=== PATIENT | male | born 1960 | race Caucasian/White ===

== ENCOUNTER 2022-03-07 12:02 | Outpatient (CLI) | payer OTHER, SELFPAY ==
[2022-03-07 14:23] LABS: Chloride* 102 mmol/L (96-114); Potassium* 4.6 mmol/L (3.6-5.1); Sodium* 140 mmol/L (135-149)
[2022-03-07 14:26] LABS: Blood Urea Nitrogen* 21 mg/dL (7-30); Carbon Dioxide* 32 mmol/L (20-32); Cholesterol* 288 mg/dL (90-199); Creatinine* 0.9 mg/dL (0.5-1.5); Estimated Glomerular Filt Rate 98 ml/min
[2022-03-07 14:27] LABS: Calcium* 9.9 mg/dL (8.4-10.6); Glucose* 118 mg/dL (60-115); HDL Cholesterol* 65 mg/dL (>=40); LDL Cholesterol Calculated 195 mg/dL (<100); Triglycerides* 142 mg/dL (40-149)
[2022-03-07 14:57] LABS: PSA Screen* 1.95 ng/mL (0.10-4.00)
== END 2022-03-07 12:03 | disposition home or self-care (01) ==
PROVIDERS: PCP Family Medicine; Visit Provider Family Medicine
DX: I10 Essential (primary) hypertension (principal); E78.5 Hyperlipidemia, unspecified; Z12.5 Encounter for screening for malignant neoplasm of prostate
CPT/HCPCS: 80048; 80061; 84153

== ENCOUNTER 2022-11-17 14:02 | Outpatient (CLI) | payer OTHER, SELFPAY | END 2022-11-17 14:03 | disposition home or self-care (01) | PROVIDERS: Visit Provider Registered Nurse | DX: R07.9 Chest pain, unspecified (principal); E78.5 Hyperlipidemia, unspecified; I10 Essential (primary) hypertension | CPT/HCPCS: 80076; 84484; 85379 ==

== ENCOUNTER 2023-06-06 11:41 | Outpatient (CLI) | payer OTHER, SELFPAY ==
--- NOTE | 2023-06-06 14:00 | US_ITS ---
Patient: REAGAN GOLDMAN Facility:?[facility] Patient ID:?[id number] Site Patient ID:?[id number]. Site :?1960 Study:?US-Extremity REBECCA RT-06/06/2023 12:26:16 PM Ordering Physician:?SUSAN CHAPARRO Final Report: INDICATION: RT CALF PAIN, SWELLING/EDEMA UNILATERAL COMPARISON: None. TECHNIQUE: A compression venous ultrasound exam was performed of the right lower extremity using galan-scale imaging, color Doppler and spectral Doppler analysis. FINDINGS: Sonographic imaging of the right lower extremity demonstrates normal compressibility and color Doppler venous blood flow within the common femoral vein, deep femoral vein, and the proximal greater saphenous vein. Within the thigh, the femoral vein is patent and compressible. At a lower level, the popliteal and posterior tibial veins also show normal compressibility and color Doppler venous blood flow. Limited imaging of the contralateral groin demonstrates a normal spectral waveform and color Doppler venous blood flow within the left common femoral vein. Superficial clot is present within the right mid calf extending over a length of 6.3 cm. IMPRESSION: No evidence of deep vein thrombosis within the right lower extremity. Superficial thrombus within the right mid calf extending over a length of 6.3 cm. Dictated by Miguel Angel Burns MD @ 06/06/2023 12:56:17 PM Signed by:?Miguel Angel Burns MD @06/06/2023 12:56:17 PM (Electronic Signature)
== END 2023-06-06 11:42 | disposition home or self-care (01) ==
PROVIDERS: PCP Family Medicine; Visit Provider Orthopaedic Surgery
DX: M79.604 Pain in right leg (principal); I82.811 Embolism and thrombosis of superficial veins of right lower extremity; R22.41 Localized swelling, mass and lump, right lower limb
CPT/HCPCS: 93971

== ENCOUNTER 2023-06-14 12:57 | Outpatient (CLI) | payer OTHER, SELFPAY ==
--- NOTE | 2023-06-14 13:00 | MR_ITS ---
Patient: REAGAN GOLDMAN Facility:?[facility] Patient ID:?[id number] Site Patient ID:?[id number]. Site :?1960 Study:?MRI-Shoulder Right w/o-06/14/2023 1:47:30 PM Ordering Physician:Omid Alanis Final Report: INDICATION: Shoulder pain. COMPARISON: None provided. TECHNIQUE: Axial T1 and PD fat-sat, coronal PD, T2 and PD fat sat and sagittal PD and T2 right shoulder. Some motion degrades provided sequences. FINDINGS: Rotator cuff: Degenerative appearing full-thickness tear of the anterior distal supraspinatus. Anterior-posterior distance 18 mm. Retraction roughly 10 mm although the proximal and posterior tendon is moderate to significantly thinned due to articular surface high-grade partial tearing. Tear anteriorly enters the rotator interval. Mild patchy heterogeneous intermediate signal in the infraspinatus consistent with mild tendinosis. Intact teres minor. Prominent disorganized delaminating tearing and tendinosis of the inserting subscapularis. Long head biceps appears to be medially dislocated and courses through the torn and degenerated subscapularis. No rotator cuff muscle atrophy or edema. - Acromioclavicular joint and coracoacromial arch: Curved type 2 acromial undersurface with slight lateral downsloping. Acromiohumeral distance is 7.5 mm. Thin line of fluid in the subacromial/subdeltoid bursa. Shallow subacromial spurring at the insertion of normal thickness coracoacromial ligament. Mild degenerative arthrosis AC joint with small effusion and capsular edematous hypertrophy. Upper normal width of the joint. No significant osteophyte. Intact coracoclavicular ligaments and normal coracoclavicular distance. Subcoracoid interval is patent. - Biceps labral complex: Somewhat small superior labrum may be marginal degenerative tearing. Anterior, inferior and posterior labrum look normal. Intact anchor. Medially subluxed biceps is indistinct thin and elongated with prominent intermediate signal at the margins as it extends through the subscapularis. High-grade to complete tearing as it extends over the lesser tuberosity and back into the bicipital groove which is filled with synovitis and a small amount of fluid. Some return to normal low signal tendon at the inferior field of view. - Glenohumeral joint: Anatomic alignment. Grade 2 cartilage thinning in the glenoid superiorly. No secondary degenerative or inflammatory finding. Physiologic fluid. - Bones and soft tissues: Deltoid bulk and signal is normal. Neutral glenoid version. No fracture. No bone lesion. Visualized axilla is unremarkable. IMPRESSION: 1. Full-thickness degenerative appearing tear in the anterior distal supraspinatus to the footplate and through the rotator interval. Delaminating tear and prominent tendinosis of the subscapularis. Disruption of the biceps pauline. Medial dislocation of biceps. High-grade to complete tear through the subscapularis. Some fluid and synovitis in the tendon sheath. 2. Mild degenerative arthrosis AC joint. 3. Subacromial spurring. Dictated by Jerald Florentino MD @ 06/14/2023 7:16:19 PM Signed by:?Jerald Florentino MD @06/14/2023 7:16:19 PM (Electronic Signature)
== END 2023-06-14 12:58 | disposition home or self-care (01) ==
LOC: MRI 13:02
PROVIDERS: PCP Family Medicine; Visit Provider Orthopaedic Surgery
DX: M25.511 Pain in right shoulder (principal); M75.101 Unspecified rotator cuff tear or rupture of right shoulder, not specified as traumatic; M19.011 Primary osteoarthritis, right shoulder
CPT/HCPCS: 73221

== ENCOUNTER 2024-05-09 10:13 | Outpatient (CLI) | payer OTHER, SELFPAY | END 2024-05-09 10:14 | disposition home or self-care (01) | PROVIDERS: PCP Family Medicine; Visit Provider Family Medicine | DX: I10 Essential (primary) hypertension (principal); E78.5 Hyperlipidemia, unspecified; N52.9 Male erectile dysfunction, unspecified; Z12.5 Encounter for screening for malignant neoplasm of prostate | CPT/HCPCS: 80048; 80061; 84403; G0103 ==

== ENCOUNTER 2024-07-16 07:53 | Outpatient (CLI) | payer OTHER, SELFPAY | END 2024-07-16 07:54 | disposition home or self-care (01) | LOC: RAD 07:54 | PROVIDERS: PCP Registered Nurse; Visit Provider Registered Nurse | DX: R10.13 Epigastric pain (principal); I34.0 Nonrheumatic mitral (valve) insufficiency; R06.00 Dyspnea, unspecified | CPT/HCPCS: 93306 ==

== ENCOUNTER 2024-07-16 13:38 | Outpatient (CLI) | payer OTHER, SELFPAY | END 2024-07-16 13:39 | disposition home or self-care (01) | PROVIDERS: PCP Registered Nurse; Visit Provider Registered Nurse | DX: R07.9 Chest pain, unspecified (principal); R06.02 Shortness of breath; E78.2 Mixed hyperlipidemia | CPT/HCPCS: 83880; 84484; 85379 ==

== ENCOUNTER 2024-07-16 15:23 | Emergency (ER) | payer OTHER, SELFPAY ==
[2024-07-16] VITALS (56 sets, daily range): BP systolic 131–199; BP diastolic 85–128; PULSE 58–90; RESP 0–32; TEMP 36.4; O2SAT 92–98; BMI 31.6
--- OUTSIDE RECORDS SUMMARY | 2024-07-16 15:26 | XMS_ITS | Clinical Summary ---
Author Organization [facility] Address [address] [place] [address] Care Team Providers Care Parts Sales Representative Name Role Phone Pcp, No Primary Care Provider Unavailabl e Allergies No known active allergies Medications metoprolol succinate (TOPROL XL) 50 mg sustained-releas e tabletIndication s:HTN (hypertension) Take 1 tablet by mouth once daily. 90 tablet 3 05/19/2020 Active rosuvastatin (CRESTOR) 20 mg tabletIndication s:HTN (hypertension) Take 1 tablet by mouth at bedtime. 90 tablet. 3 05/19/2020 Active Active Problems Problem Noted Date Diagnosed Date Erectile dysfunction 10/12/2015 S/P total knee arthroplasty 05/04/2014 Tobacco use disorder 10/07/2008 ANXIETY DISORDER 04/06/2006 HYPERLIPIDEMIA 04/06/2006 Resolved Problems Problem Noted Date Diagnosed Date Resolved Date HTN (hypertension) 06/01/2009 3 Encounters Date Type Department Care Team Description 07/16/2024 8:00 AM CDT Ancillary Procedure [facility] [address] [place] [address] Arrived from Last 3 Months Immunizations Immunization Administration Dates Next Due AMB Influenza, IIV4 PF (=>6 mos Flulaval,Fluzone Fluarix)(Flu Clinic Only) 01/10/2017 Td (Age >=7 Years) 04/09/1996 Tdap 07/12/2010 Family History Medical History Relation Name Comments Alcohol/Drug Father ETOH Cancer Father lung, throat Heart Disease Maternal Grandfather Diabetes Maternal Grandmother Heart Disease Maternal Grandmother Psychiatric illness Mother depressi on-celexa Heart Disease Paternal Grandmother Psychiatric illness Sister depressi on-wellbutrin Relation Name Status Comments Father (Age 71) Maternal Grandfather Maternal Grandmother Mother Alive Paternal Grandmother Sister Social History Tobacco Use Types Packs/Day Years Used Date Smoking Tobacco: Former Smokeless Tobacco: Current Chew Last attempted to quit: 03/09/2013 Tobacco Cessation:Ready to Q uit: No; Counseling Given: Yes Comments:chews Alcohol Use Standard Drinks/Week Comments Yes 0 (1 standard drink = 0.6 oz pur e alcohol) occasional PHQ-2 Answer Date Recorded PHQ-2 TOTAL SCORE 0 04/14/2020 Social Connections Answer Date Recorded Frequency of Communication with Friends and Fami ly Not on file 04/09/2021 Financial Resource Strain Answer Date R ecorded Difficulty of Paying Living Expenses Not on file 04/09/2021 Difficulty of Paying Living Expenses Not on file 04/09/2021 Sex and Gender Information Value Date Recorded Sex Assigned at Not on file Legal Sex Male 5:40 AM FACE PAINTER Gender Identity Not on file Sexual Orientation Not on file Occupation Industry Job Start Date Job End Date [employer] Not on file Not on file Not on file Not on file Not on file Not on file Not on file unemployed Not on file Not on file Not on file Obstetrics History Last Filed Vital Signs Vital Sign Reading Time Taken Comments Blood Pressure 144/80 05/19/2020 2:31 PM FACE PAINTER Pulse 88 05/19/2020 2:30 PM FACE PAINTER Temperature 36.8 C (98.3 F) 03/30/2016 12:24 PM FACE PAINTER Respiratory Rate 15 03/26/2015 11:28 AM FACE PAINTER Oxygen Saturation 96% 03/30/2016 12:24 PM FACE PAINTER Inhaled Oxygen Concentration - - Weight 102.5 kg (226 lb) 05/19/2020 2:30 PM FACE PAINTER Height 180.3 cm (5' 11) 05/19/2020 2:30 PM FACE PAINTER Body Mass Index 31.52 05/19/2020 2:30 PM FACE PAINTER Plan of Treatment Upcoming Encounters Date Type Department Care Team (Late st Contact Info) Description 07/24/2024 8:30 AM CDT Office Visit [facility] [address] [place] [address] Sha French MD [address] [address] [place] [address] Health Maintenance Due Date Last Done Comments HIV for age 15-65 1976 Pneumococcal series for age 50+ (1 of 1 - PCV) 08/22/2011 Zoster (shingles) series for age 50+ (1 of 2) 08/22/2011 Fecal testing non-DNA (FIT,FOBT,iFOBT) for age 45-75 01/02/2018 01/02/2017 Tetanus booster 07/12/2020 07/12/2010, 04/09/1996 Depression screening for age 12+ 04/14/2021 04/14/19, 12/21/2016 BMI (ht and wt on same day) for age 18+ 05/19/2021 05/19/2020, 04/14/2020, 12/21/2016 COVID-19 vaccine series ( - 2023- season) 2023 Influenza Vaccine (Season Ended) 2024 01/11/20 17 Lipids for age 45-75 05/10/2025 05/10/2020, 12/21/2016, 03/26/2015, Additional history exists RSV vaccine for adults or (1 - 1-dose 75+ series) 2036 Tdap Completed 07/12/2010 Hepatitis C screening for ag e 18-79 Completed 05/10/2020 Medical Devices Implanted Type Area Visualization Developer Device Identifier Shelf Expiration Date Model / Serial / Lot [id number] - [id number] Implanted:Qty: 1 on 05/04/2014 by Morris Alanis MD at [facility] Total Joint Right: Knee DEPUY 06/06/2017 7 / / [id number] Description:Attune Tibial In sert Fixed Bearing Posterior Stabilized Size 7 7mm AOX Cement Simplex W/ Tobramycin - [id number] Implanted:Qty: 2 on 05/04/2014 by Morris Alanis MD at [facility] Right: Knee D-SOHAM 06/06/2015 [id number] / / [id number] Description:Antibiotic simpl ex cement [id number] - [id number] Implanted:Qty: 1 on 05/04/2014 by Morris Alanis MD at [facility] Right: Knee DEPUY 10/07/2023 7 [id number] Description:Attune Tibial ba se fixed bearing size 7 cemented [id number] - [id number] Implanted:Qty: 1 on 05/04/2014 by Morris Alanis MD at [facility] Right: Knee DEPUY 08/06/2018 8 / / [id number] Description:Attune patella m edialized dome [id number] - [id number] Implanted:Qty: 1 on 05/04/2014 by Morris Alanis MD at [facility] Right: Knee DEPUY 06/06/2023 [id number] Description:Attune femoral p osterior stabilized Procedures Procedure Name Priority Date/Time Associated Diagnosis Comments ECHO TTE COMPLETE WO CONTRAST Routine 07/16/2024 8:29 AM CDT Epigastric pain ANTI HCV Routine 05/10/2020 10:29 AM FACE PAINTER Encounter for HCV screening test for high risk patient LIPID PANEL W REFLEX MEASURED LDL Routine 05/10/2020 10:29 AM FACE PAINTER HTN (hypertension) Well adult exam OCCULT BLOOD IFOBT STOOL Routine 01/02/2017 1:00 PM CDT Screening for colon cancer from Last 3 Months or Most Recently Relevant to Health Maintenance Results * ECHO TTE COMPLETE WO CONTRAST (07/16/2024 8:29 AM CDT) AORTIC VALVE MEAN PG 3 mmHg EJECTION FRACTION 52 % LVEDD 5.6 cm EJECTION FRACTION 50 - 55% Anatomical Region Laterality Modality Ultrasound 07/16/2024 8:05 AM CDT Narrative 07/16/2024 8:39 AM CDT ECHOCARDIOGRAM MOISES LUNA : 1960 63 years Study Date: 07/16/2024 8:05:51 AM Gender: M BP: 167/94 mmHg Height: 173.00 cm BSA: 2.16 m Weight: 103.00 kg Tech: [facility] Referring MD: HARRIET PARKINSON Site: [facility] Reading Location: Mobile-OP Patient Location: Outpatient. Procedure: 2D, Color Doppler and Spectral Doppler. Indication for study: Epigastric Pain Cardiac Rhythm: Regular.Study quality: Good. Final Impressions: 1. Normal LV size, normal wall thickness, estimated EF of 50 - 55%. 2. The mitral valve is normal, mild regurgitation. 3. No pericardial effusion. Chamber Sizes and Function Normal left ventricular size, normal wall thickness, low normal global systolic function with an estimated EF of 50 - 55%. No resting regional wall motion abnormality visualized. Left atrial size is normal. Left atrial pressure is normal. Right ventricular cavity size is normal, global systolic RV function is normal. RV wall thickness is normal. The right atrium is normal. Right atrial volume index is 14 ml/m . Right atrial area is 12 cm . The pulmonary artery is of normal size and origin. The sinus of Valsalva is normal sized. The ascending aorta is normal sized. Valves, RV Pressures and Diastolic Function The aortic valve is normal in structure and trileaflet, no stenosis and no regurgitation. The mitral valve is normal in structure, mild mitral regurgitation. Normal diastolic function. The tricuspid valve is normal in structure and regurgitation is not evident tricuspid regurgitation. The pulmonic valve is normal. No pulmonary regurgitation. Masses, Effusion, Shunts There is no pericardial effusion. The inferior vena cava is normal sized, respiratory size variation greater than 50%. No left to right shunting was detected by limited color flow Doppler interrogation of the interatrial septum. MEASUREMENTS AND CALCULATIONS 2-D Measurements and LV Function: LVID (d) 5.6 cm LV FS% (2D) 42 % LVID (s) 3.2 cm LVOT diameter 2.6 cm IVS (d) 1.1 cm HR 75 bpm LVPW (d) 1.1 cm LA Vol index 27 ml/m2 Ao Sinus 3.7 cm RA Vol index 14 ml/m2 Ao Sinus ULN 4.2 cm * RA area 12 cm Asc Ao 3.5 cm RV Basal Diam 3.2 cm Asc Ao ULN 4.2 cm * LA 4.4 cm * Input BSA outside of range, reported values correspond to BSA = 2.1 Diastology: Mitral Tissue Doppler Pulmonary veins E Peak 0.6 m/s e', Septum 0.05 m/s Pulm s 41.1 cm/s A Peak 0.7 m/s e', Lateral 0.11 m/s Pulm d 50.3 cm/s E/A 0.8 E/e' Average 7.45 Pulm s/d ratio 0.82 DT 138 msec Aortic Valve: Vmax 1.1 m/s AFTAB (V) 3.56 cm VTI 0.23 m AFTAB (I) 3.00 cm LVOT V max 0.7 m/s Max PG 5 mmHg LVOT VTI 0.14 m Mean PG 3 mmHg SV 69 ml Dim Index 0.59 SV index 32 ml/m CO 5.2 l/min CI 2.4 l/min/m Mitral Valve: MVA 5.5 cm MV P 1/2 40 msec Tricuspid Valve and estimated PA pressures: TAPSE 2.1 cm Pulmonic Valve: PV AT 121 msec . This study was interpreted by an [facility] accredited facility. CC: [facility] ([facility]) [facility]. Final Procedure Note Manuel Back MD - 07/16/2024 ECHOCARDIOGRAM MOISES LUNA : 1960 63 years Study Date: 07/16/2024 8:05:51 AM Gender: M BP: 167/94 mmHg Height: 173.00 cm BSA: 2.16 m Weight: 103.00 kg Tech: [facility] Referring MD: HARRIET PARKINSON Site: [facility] Reading Location: Mobile-OP Patient Location: Outpatient. Procedure: 2D, Color Doppler and Spectral Doppler. Indication for study: Epigastric Pain Cardiac Rhythm: Regular.Study quality: Good. Final Impressions: 1. Normal LV size, normal wall thickness, estimated EF of 50 - 55%. 2. The mitral valve is normal, mild regurgitation. 3. No pericardial effusion. Chamber Sizes and Function Normal left ventricular size, normal wall thickness, low normal globalsystolic function with an estimated EF of 50 - 55%. No resting regionalwall motion abnormality visualized. Left atrial size is normal. Leftatrial pressure is normal. Right ventricular cavity size is normal, globalsystolic RV function is normal. RV wall thickness is normal. The rightatrium is normal. Right atrial volume index is 14 ml/m . Right atrialarea is 12 cm . The pulmonary artery is of normal size and origin. Thesinus of Valsalva is normal sized. The ascending aorta is normal sized. Valves, RV Pressures and Diastolic Function The aortic valve is normal in structure and trileaflet, no stenosis and noregurgitation. The mitral valve is normal in structure, mild mitralregurgitation. Normal diastolic function. The tricuspid valve is normal instructure and regurgitation is not evident tricuspid regurgitation. Thepulmonic valve is normal. No pulmonary regurgitation. Masses, Effusion, Shunts There is no pericardial effusion. The inferior vena cava is normal sized,respiratory size variation greater than 50%. No left to right shunting wasdetected by limited color flow Doppler interrogation of the interatrialseptum. MEASUREMENTS AND CALCULATIONS 2-D Measurements and LV Function: LVID (d) 5.6 cm LV FS% (2D) 42% LVID (s) 3.2 cm LVOT diameter2.6 cm IVS (d) 1.1 cm HR 75bpm LVPW (d) 1.1 cm LA Vol index 27ml/m2 Ao Sinus 3.7 cm RA Vol index 14ml/m2 Ao Sinus ULN 4.2 cm * RA area 12cm Asc Ao 3.5 cm RV Basal Diam3.2 cm Asc Ao ULN 4.2 cm * LA 4.4 cm * Input BSA outside of range, reported values correspond to BSA = 2.1 Diastology: Mitral Tissue Doppler Pulmonary veins E Peak 0.6 m/s e', Septum 0.05 m/s Pulm s 41.1 cm/s A Peak 0.7 m/s e', Lateral 0.11 m/s Pulm d 50.3 cm/s E/A 0.8 E/e' Average 7.45 Pulm s/d ratio 0.82 DT 138 msec Aortic Valve: Vmax 1.1 m/s AFTAB (V) 3.56 cm VTI 0.23 m AFTAB (I) 3.00 cm LVOT V max 0.7 m/s Max PG 5 mmHg LVOT VTI 0.14 m Mean PG 3 mmHg SV 69 ml Dim Index 0.59 SV index 32 ml/m CO 5.2 l/min CI 2.4 l/min/m Mitral Valve: MVA 5.5 cm MV P 1/2 40 msec Tricuspid Valve and estimated PA pressures: TAPSE 2.1 cm Pulmonic Valve: PV AT 121 msec . This study was interpreted by an [facility] accredited facility. CC: [facility] (med records) [facility]. Final us Harriet Parkinson [employer] ECHO ORD F inal Result * (ABNORMAL) LIPID PANEL W REFLEX MEASURED LDL (05/10/2020 10:29 AM FACE PAINTER) CHOLESTEROL,TOTAL 258(H) 100 - 199 mg/dL 05/10/2020 11:13 AM FACE PAINTER [facility] TRIGLYCERIDES 200(H) <150 mg/dL 05/10/2020 11:13 AM FACE PAINTER [facility] HDL CHOLESTEROL 47 >40 mg/dL 11:13 AM FACE PAINTER [facility] NON-HDL CHOLESTEROL 211(H) <145 mg/dl 05/10/2020 11:13 AM FACE PAINTER [facility] CHOL/HDL RATIO 5.49(H) <4.50 05/10/2020 11:13 AM FACE PAINTER [facility] LDL CHOLESTEROL 171(H) <=130 mg/dL 05/10/2020 11:13 AM FACE PAINTER [facility] PROVIDER ORDERED STATUS RANDOM 05/10/2020 11:13 AM FACE PAINTER [facility] Blood BLOOD SPECIMEN / Unknown Venipuncture / Unknown 05/10/2020 10:29 AM FACE PAINTER 05/10/2020 10:32 AM FACE PAINTER us Jeb Marquis MD CHEMISTRY Final R esult [address] [address] * ANTI HCV (05/10/2020 10:29 AM FACE PAINTER) HEPATITIS C ANTIBODY Non-React jhony Non-React jhony 05/10/2020 6:10 PM FACE PAINTER [facility] Comment:Antibodies to HCV no t detected; does not exclude the possibility of exposure to HCV. Blood BLOOD SPECIMEN / Unknown Venipuncture / Unknown 05/10/2020 10:29 AM FACE PAINTER 05/10/2020 10:32 AM FACE PAINTER Jeb Marquis MD SEND OUTS Final R esult [facility] [address] [place] [address], * OCCULT BLOOD IFOBT STOOL (01/02/2017 1:00 PM CDT) STOOL BLOOD ,IFOBT Negative Negative 01/02/2017 4:29 PM CDT [facility] Stool STOOL SPECIMEN / Unknown Non-Blood / Unknown 01/02/2017 1:00 PM CDT 01/02/2017 4:00 PM CDT Fabien Gamez MD LABORATORY Final Result [facility] [address] [place] [address] from Last 3 Months or Most Recently Relevant to Health Maintenance Insurance [facility] [employer] CHOICE [facility] [id number] [facility],[place] [address] Advance Directives * Full Code (Latest Code Status on File) Date Activated Date Inactivated Comments 05/04/2014 12:30 PM 05/07/2014 4:53 PM * Full Code Date Activated Date Inactivated Comments 05/04/2014 7:25 AM 05/04/2014 12:30 PM Care Teams Parts Sales Representative Relationship Specialty Start Date End Date Pcp, No . PCP - General 07/04/23
[2024-07-16 15:45] LABS: Basophils Absolute Auto 0.03 K/uL (0.00-0.30); Basophils Percent Auto 0.5 % (0.0-3.0); Eosinophils Absolute Auto 0.09 K/uL (0.00-0.50); Eosinophils Percent Auto 1.4 % (0.0-7.0); Hematocrit 44.1 % (37.0-53.0); Lymphocytes Absolute Auto 1.44 K/uL (0.90-2.90); Lymphocytes Percent Auto 22.1 % (20-44); Mean Corpuscular HGB Conc 34 gm/dL (32-36); Mean Corpuscular Hemoglobin 30 pg (26-34); Mean Corpuscular Volume 89 fL (80-100); Monocytes Percent Auto 9.1 % (0.0-11.0); Neutrophils Absolute Auto 4.36 K/uL (1.7-7.0); Neutrophils Percent Auto 66.9 % (42.0-72.0); Platelet Count* 206 K/uL (140-440); RDW Coefficient of Variation % 12.3 % (11.5-15.5); Red Blood Count 4.98 m/uL (4.30-5.90); White Blood Count* 6.51 K/uL (4.50-11.00)
[2024-07-16 15:50] LABS: Slide Review Reflex No
[2024-07-16 15:59] LABS: Chloride* 99 mmol/L (96-114); Potassium* 3.9 mmol/L (3.6-5.1); Sodium* 136 mmol/L (135-149)
[2024-07-16 16:01] LABS: Troponin, Point-of-Care* 2.47 ng/ml (0.01-0.04)
[2024-07-16 16:02] LABS: Anion Gap 10 mEq/L (7-15); Blood Urea Nitrogen* 17 mg/dL (7-30); Calcium* 9.4 mg/dL (8.4-10.6); Carbon Dioxide* 27 mmol/L (20-32); Creatinine* 0.8 mg/dL (0.5-1.5); Est. Creatinine Clearance* 79.08; Estimated Glomerular Filt Rate 100 ml/min; Glucose* 137 mg/dL (60-115)
--- NOTE | 2024-07-16 16:04 | ED.CHESTPAIN ---
HPI - Chest Pain General Date Seen: 07/16/24 Chief Complaint: Chest Pain Stated Complaint: heart issue Time Seen by Provider: 07/16/24 15:25 Source: patient Mode of arrival: ambulatory Limitations: no limitations History of Present Illness HPI narrative: Patient is a 63-year-old male presenting to the emergency department for chest pain and shortness of breath. He states for the past month he will get shortness of breath with any exertion. He states this is abnormal for him as not happened before. Has also states he has had 2 episodes of chest pressure. States the 1st time 2 weeks ago it occurred randomly and went away after he belched. It occurred again 5 days ago and lasted for about 2 days. States of this constant chest pressure that started mainly would not go way. Nothing seems to make it better or worse. Has never had pain like this before. Has been previously diagnosed with GERD initially thought it was that. Has uncontrolled hypertension and hyperlipidemia. Was at clinic today getting an echocardiogram when he decided to talk to his primary care provider about it again. Lab work was done there and chest x-ray showing no abnormalities. She some last week for the same symptoms and EKG was normal at that time along with his lab work. This time a point of care troponin came back elevated at 2.13. Due that his primary care provider called and told him to come to the emergency department. They also called here to the emergency department to inform us he is coming. Patient denies headache, lightheadedness, dizziness, diarrhea, constipation. Does state when he have the chest pressure it feels like it would go up into his neck. Related Data Home Medications ?Medication ?Instructions ?Recorded ?Confirmed coenzyme Q10-red yeast rice 25 cap PO 07/10/24 07/16/24 mg-600 mg capsule Previous Rx's ?Medication ?Instructions ?Recorded alprazolam 0.5 mg tablet (Xanax) 0.5 mg PO BID PRN anxiety #20 tabs 01/25/23 fluoxetine 20 mg capsule (Prozac) 20 mg PO QDAY #90 caps 05/09/24 omeprazole 20 mg capsule,delayed 20 mg PO QDAY PRN gerd #90 caps 05/09/24 release tamsulosin 0.4 mg capsule (Flomax) 0.4 mg PO QHS #90 caps 05/09/24 Allergies Allergy/AdvReac Type Severity Reaction Status Date / Time MOIRA Inhibitors AdvReac Intermediate Cough Verified 07/16/24 15:29 Review of Systems Status of ROS Reports: 10 or more systems reviewed and unremarkable except as noted in History and below PFSH PFSH Medical History Mixed hyperlipidemia ?E78.2 - Mixed hyperlipidemia (ICD-10) Primary hypertension ?I10 - Essential (primary) hypertension (ICD-10) GERD (gastroesophageal reflux disease) ?K21.9 - Gastro-esophageal reflux disease without esophagitis (ICD-10) Generalized anxiety disorder ?F41.1 - Generalized anxiety disorder (ICD-10) Major depression, recurrent ?F33.9 - Major depressive disorder, recurrent, unspecified (ICD-10) Erectile dysfunction ?N52.9 - Male erectile dysfunction, unspecified (ICD-10) Cholesteatoma ?H71.90 - Unspecified cholesteatoma, unspecified ear (ICD-10) BPH (benign prostatic hyperplasia) ?N40.0 - Benign prostatic hyperplasia without lower urinary tract symptoms (ICD-10) Surgical History Hx of repair of rotator cuff ?Z98.890 - Other specified postprocedural states (ICD-10) History of inguinal hernia repair (01/2005) ?Z98.890 - Other specified postprocedural states (ICD-10) ?Z87.19 - Personal history of other diseases of the digestive system (ICD-10) S/P total knee arthroplasty ?Z96.659 - Presence of unspecified artificial knee joint (ICD-10) S/P myringotomy with insertion of tube ?Z96.22 - Myringotomy tube(s) status (ICD-10) Hx of tonsillectomy ?Z90.89 - Acquired absence of other organs (ICD-10) History of ear surgery ?Z98.890 - Other specified postprocedural states (ICD-10) Family History Mother Diabetes Maternal Grandmother Diabetes Other Heart disease Stroke Social History Narrative: Single, two kids, [employer] truck driver, social ETOH, chews tobacco What is your current living situation?: I have a place to live at present, but am concerned about future Problems where you live: pests, such as bugs, ants, or mice and no known problems In the past 12 months, utilities in danger of being shut off: no In past 12 months, lack of transportation kept you from medical appts, meetings, work, or getting things needed for daily living: no In the past 12 mos, have been you worried that your food would run out before you had money to buy more?: never true In the past 12 mos, the food you bought just didn't last and you didn't have money to buy more?: never true Smoking Status: Former smoker How often does anyone, including family, friends and others, physically hurt you: never How often does anyone, including family, friends and others, insult or talk down to you: never How often does anyone, including family, friends and others, threaten you with harm: never How often does anyone, including family, friends and others, scream or curse at you: never Health Related Social Needs: Inadequate housing (Z59.1) and housing instability, housed, with risk of homelessness (Z59.811) Exam Narrative Exam Narrative: Const: Well-nourished, Well-developed, in no distress Eyes: PERRL, no conjunctival injection, and symmetrical lids HENT: Atraumatic external nose and ears. Moist mucous membranes. Neck: Symmetric, trachea midline, No thyromegaly. CVS: RRR, No murmurs or gallops. Peripheral pulses 2+ and equal in all extremities RESP: Unlabored respiratory effort. Clear to auscultation bilaterally. GI: Nontender/Nondistended, No rebound or guarding. MSK:Extremities w/o deformity, Normal Active ROM Skin: Warm, Dry. No rashes or lesions. Neuro: Normal Muscle tone, No focal neurological deficits. Psych: Awake, Alert, & Oriented x3. Appropriate mood and affect. Const Vital Signs, click to edit/add: Vital Signs - 24 hr 07/16/24 15:32 07/16/24 15:33 07/16/24 15:33 Temperature 97.6 F Pulse Rate 90 90 Pulse Rate [Pulse Oximeter] 85 Respiratory Rate 11 L 20 9 L Blood Pressure 196/128 H Blood Pressure [Right Upper Arm] 199/124 H Pulse Oximetry 97 98 97 Oxygen Delivery Method Room Air 07/16/24 15:45 07/16/24 15:47 07/16/24 16:00 Temperature Pulse Rate 87 84 83 Pulse Rate [Pulse Oximeter] Respiratory Rate 21 16 18 Blood Pressure 186/112 H Blood Pressure [Right Upper Arm] Pulse Oximetry 94 95 96 Oxygen Delivery Method 07/16/24 16:02 07/16/24 16:15 07/16/24 16:16 Temperature Pulse Rate 84 80 80 Pulse Rate [Pulse Oximeter] Respiratory Rate 11 L 13 13 Blood Pressure 172/114 H 169/119 H Blood Pressure [Right Upper Arm] Pulse Oximetry 96 93 94 Oxygen Delivery Method 07/16/24 16:30 07/16/24 16:31 07/16/24 16:31 Temperature Pulse Rate 77 84 84 Pulse Rate [Pulse Oximeter] Respiratory Rate 11 L 17 17 Blood Pressure 176/114 H 176/114 H Blood Pressure [Right Upper Arm] Pulse Oximetry 92 92 92 Oxygen Delivery Method 07/16/24 16:45 07/16/24 16:47 07/16/24 17:00 Temperature Pulse Rate 79 77 73 Pulse Rate [Pulse Oximeter] Respiratory Rate 18 16 0 L Blood Pressure 175/117 H Blood Pressure [Right Upper Arm] Pulse Oximetry 95 95 96 Oxygen Delivery Method 07/16/24 17:01 07/16/24 17:02 07/16/24 17:15 Temperature Pulse Rate 72 76 72 Pulse Rate [Pulse Oximeter] Respiratory Rate 15 12 10 L Blood Pressure 162/105 H Blood Pressure [Right Upper Arm] Pulse Oximetry 93 96 96 Oxygen Delivery Method 07/16/24 17:16 07/16/24 17:30 07/16/24 17:31 Temperature Pulse Rate 75 67 74 Pulse Rate [Pulse Oximeter] Respiratory Rate 22 11 L 32 H Blood Pressure 161/107 H 155/103 H Blood Pressure [Right Upper Arm] Pulse Oximetry 94 98 97 Oxygen Delivery Method 07/16/24 17:45 07/16/24 17:46 07/16/24 18:00 Temperature Pulse Rate 70 68 67 Pulse Rate [Pulse Oximeter] Respiratory Rate 15 10 L 16 Blood Pressure 149/91 H Blood Pressure [Right Upper Arm] Pulse Oximetry 96 94 96 Oxygen Delivery Method 07/16/24 18:02 07/16/24 18:15 07/16/24 18:16 Temperature Pulse Rate 71 68 71 Pulse Rate [Pulse Oximeter] Respiratory Rate 6 L 20 17 Blood Pressure 147/100 H 150/95 H Blood Pressure [Right Upper Arm] Pulse Oximetry 97 95 95 Oxygen Delivery Method 07/16/24 18:30 07/16/24 18:31 07/16/24 18:45 Temperature Pulse Rate 69 69 70 Pulse Rate [Pulse Oximeter] Respiratory Rate 21 17 6 L Blood Pressure 152/98 H Blood Pressure [Right Upper Arm] Pulse Oximetry 96 96 95 Oxygen Delivery Method 07/16/24 18:47 07/16/24 19:00 07/16/24 19:01 Temperature Pulse Rate 70 70 67 Pulse Rate [Pulse Oximeter] Respiratory Rate 14 24 10 L Blood Pressure 145/93 H 138/94 H Blood Pressure [Right Upper Arm] Pulse Oximetry 97 94 95 Oxygen Delivery Method 07/16/24 19:17 07/16/24 19:19 07/16/24 19:31 Temperature Pulse Rate 69 73 Pulse Rate [Pulse Oximeter] Respiratory Rate 18 16 14 Blood Pressure 156/106 H 154/103 H 150/113 H Blood Pressure [Right Upper Arm] Pulse Oximetry 96 97 Oxygen Delivery Method Course Vital Signs Vital signs: Initial Vital Signs Pulse Rate 90 07/16/24 15:32 Respiratory Rate 11 L 07/16/24 15:32 Blood Pressure 196/128 H 07/16/24 15:32 Blood Pressure Mean 150 H 07/16/24 15:32 Pulse Oximetry 97 07/16/24 15:32 Vital Signs Pulse Rate 90 07/16/24 15:32 Respiratory Rate 11 L 07/16/24 15:32 Blood Pressure 196/128 H 07/16/24 15:32 Pulse Oximetry 97 07/16/24 15:32 Temperature 97.6 F 07/16/24 15:33 Pulse Rate 73 07/16/24 19:31 Respiratory Rate 14 07/16/24 19:31 Blood Pressure 150/113 H 07/16/24 19:31 Pulse Oximetry 97 07/16/24 19:31 Oxygen Delivery Method Room Air 07/16/24 15:33 Medications Administered Medications: Generic Name Dose Route Start Last Admin Trade Name Freq PRN Reason Stop Dose Admin Heparin Sodium/Dextrose 25,000 unit in 500 mls @ 0 mls/hr 07/16/24 16:30 07/16/24 16:40 Heparin IV 1,000 unit/hr .Q0M SYLVAIN 20 mls/hr Administration Protocol Per Protocol Discontinued Medications Generic Name Dose Route Start Last Admin Trade Name Lucio PRN Reason Stop Dose Admin Heparin Sodium (Porcine) 4,000 unit 07/16/24 16:18 07/16/24 16:39 Heparin 5,000 Unit/0.5 Ml Inj IVP 07/16/24 16:19 4,000 unit ONCE ONE Administration Labetalol HCl 20 mg 07/16/24 16:26 07/16/24 16:45 Labetalol Hcl 5 Mg/Ml Inj IVP 07/16/24 16:27 20 mg ONCE ONE Administration MDM - Chest Pain MDM Narrative Medical decision making narrative: Patient is a 63-year-old male presenting for chest pain. The differential diagnosis of chest pain is broad and includes common etiologies such as musculoskeletal strain, GERD, pneumonia, etc. More serious etiologies considered include PE, coronary artery disease, pneumothorax, aortic dissection, aortic aneurysm. Chest x-ray done at clinic today showed no abnormalities. EKG done immediately when he arrived shows no signs of a STEMI. The sinus history my biggest concern at this time is NSTEMI. I am less concerned about aortic dissection, ruptured aortic aneurysm, PE. Will repeat troponin here and a long with doing a BMP and CBC. He is asymptomatic at this time while laying in bed. Patient's repeat troponin 1-1/2 hours after the initial 1 in clinic came back slightly more elevated at 2.70. I did speak to on-call [facility] diagnostician, Dr. Quinn, who accepts the patient for admission but is more concerned that this could be hypertensive emergency due to the patient's initially elevated blood pressure of 199/124. Recommends to bring his blood pressure down. Does recommend heparin also at this time. Patient continues to be asymptomatic. After 20 mg of labetalol his blood pressure has improved significantly. His blood pressure at shortly after giving the labetalol came down to 149/91. This is about 20% decrease in his map. Of note EKG does show signs of LVH but echo done this morning was normal other than some mild mitral valve regurgitation. Does have an elevated BNP of 1280 done in clinic prior to arrival to the ED. Lab Data Labs: Lab Results 07/16/24 07/16/24 Range/Units 15:35 15:37 WBC 6.51 (4.50-11.00) K/uL RBC 4.98 (4.30-5.90) m/uL Hgb 15.0 (13.5-17.5) gm/dL Hct 44.1 (37.0-53.0) % MCV 89 (80-100) fL MCH 30 (26-34) pg MCHC 34 (32-36) gm/dL RDW Coeff of Martha 12.3 (11.5-15.5) % Plt Count 206 (140-440) K/uL Neut % (Auto) 66.9 (42.0-72.0) % Lymph % (Auto) 22.1 (20-44) % [place] % (Auto) 9.1 (0.0-11.0) % Eos % (Auto) 1.4 (0.0-7.0) % Baso % (Auto) 0.5 (0.0-3.0) % Neut # (Auto) 4.36 (1.7-7.0) K/uL Lymph # (Auto) 1.44 (0.90-2.90) K/uL [place] # (Auto) 0.60 (0.00-0.90) K/UL Eos # (Auto) 0.09 (0.00-0.50) K/uL Baso # (Auto) 0.03 (0.00-0.30) K/uL Abs Immat Gran (auto) 0.00 (0.00-0.30) K/uL Imm/Tot Granulo (auto) 0.0 % Sodium 136 (135-149) mmol/L Potassium 3.9 (3.6-5.1) mmol/L Chloride 99 (96-114) mmol/L Carbon Dioxide 27 (20-32) mmol/L Anion Gap 10 (7-15) mEq/L BUN 17 (7-30) mg/dL Creatinine 0.8 (0.5-1.5) mg/dL Estimated Creat Clear 79.08 Estimated GFR 100 ml/min Glucose 137 H (60-115) mg/dL Calcium 9.4 (8.4-10.6) mg/dL Troponin I 2.70 H* (0.01-0.04) ng/mL POC Troponin I 2.47 H (0.01-0.04) ng/ml ECG Data Attestation: I personally reviewed and interpreted this ECG as follows: Prior ECG tracings: available for review Interpretation: Normal sinus rhythm, normal intervals, normal axis, no ST or T-wave abnormalities. Does meet LVH criteria via the Lawrence criteria. No ST or T-wave abnormalities. Appears similar previous EKGs on file Discharge Plan Discharge Clinical Impression: ACS (acute coronary syndrome), Hypertensive emergency Prescriptions: No Action alprazolam [Xanax] 0.5 mg tablet 0.5 mg PO BID PRN (Reason: anxiety) Qty: 20 0RF fluoxetine [Prozac] 20 mg capsule 20 mg PO QDAY Qty: 90 3RF omeprazole 20 mg capsule,delayed release(DR/EC) 20 mg PO QDAY PRN (Reason: gerd) Qty: 90 3RF tamsulosin [Flomax] 0.4 mg capsule 0.4 mg PO QHS Qty: 90 3RF co Q10-red yeast rice 25-600 mg capsule PO Follow Up/Referrals: Harriet Parkinson, PERFORATOR TYPIST [Primary Care Provider] -
[2024-07-16] MEDS: HEPARIN 5,000 UNIT/0.5 ML INJ 4000 UNIT IVP (16:39)
[2024-07-16] MEDS: HEPARIN 25,000 UNIT/500 ML BAG 20 UNIT IV (16:40)
[2024-07-16] MEDS: LABETALOL HCL 5 MG/ML inj 20 MG IVP (16:45)
--- OUTSIDE RECORDS SUMMARY | 2024-07-16 16:59 | XMS_ITS | Clinical Summary ---
Author Organization [facility] Address [address] [place] [address] Care Team Providers Care Branch Lead Name Role Phone Pcp, No Primary Care [...] Type Department Care Team Description 07/16/2024 8:00 PM CDT Hospital Encounter [facility] [address] [place] [address] [facility] [place] Of 07/16/2024 8:00 AM CDT Ancillary Procedure [facility] [address] [place] [address] Arrived 07/16/[address] [facility] [address] [place] [address] Samy Quinn MD from Last 3 Months Immunizations Immunization Administration [...] on file Legal Sex Male 5:40 AM [facility] Gender Identity Not on file Sexual Orientation [...] Comments Blood Pressure 144/80 05/19/2020 2:31 PM [facility] Pulse 88 05/19/2020 2:30 PM [facility] Temperature 36.8 C (98.3 F) 03/30/2016 12:24 PM [facility] Respiratory Rate 15 03/26/2015 11:28 AM [facility] Oxygen Saturation 96% 03/30/2016 12:24 PM [facility] Inhaled Oxygen Concentration - - Weight 102.5 kg (226 lb) 05/19/2020 2:30 PM [facility] Height 180.3 cm (5' 11) 05/19/2020 2:30 PM [facility] Body Mass Index 31.52 05/19/2020 2:30 PM [facility] Plan of Treatment Upcoming Encounters Date Type Department Care Team (Late st Contact Info) Description 07/24/2024 8:30 AM CDT Office Visit [facility] [address] [place] [address] Sha French MD [address] [place] [address] Health Maintenance Due Date Last Done Comments HIV for age 15-65 1976 Pneumococcal series for age 50+ (1 of 1 - PCV) 08/22/2011 Zoster (shingles) series for age 50+ (1 of 2) 08/22/2011 Fecal testing non-DNA (FIT,FOBT,iFOBT) for age 45-75 01/02/2018 01/02/2017 Tetanus booster 07/12/2020 07/12/2010, 04/09/1996 Depression screening for age 12+ 04/14/2021 04/14/19 21, 12/21/2016 BMI (ht and wt on same day) for age 18+ 05/19/2021 05/19/2020, 04/14/2020, 12/21/2016 COVID-19 vaccine series ( - season) 2023 Influenza Vaccine (Season Ended) 2024 01/11/20 17 Lipids for age 45-75 05/10/2025 05/10/2020, 12/21/2016, 03/26/2015, Additional history exists RSV vaccine for adults or (1 - 1-dose 75+ series) 2036 Tdap Completed 07/12/2010 Hepatitis C screening for ag e 18-79 Completed 05/10/2020 Medical Devices Implanted Type Area Client Business Manager Device Identifier Shelf Expiration Date Model / Serial / Lot [id number] - [id number] Implanted:Qty: 1 on 05/04/2014 by Morris Alanis MD at [facility] Total Joint Right: Knee DEPUY 06/06/2017 7 / / [id number] Description:Attune Tibial In sert Fixed Bearing Posterior Stabilized Size 7 7mm AOX Cement Simplex W/ Tobramycin - [id number] Implanted:Qty: 2 on 05/04/2014 by Morris Alnais MD at [facility] Right: Knee D-SOHAM 06/06/2015 [id number] / / [id number] Description:Antibiotic simpl ex cement F1992-29-166 - [id number] Implanted:Qty: 1 on 05/04/2014 by Morris Alanis MD at [facility] Right: Knee DEPUY 10/07/2023 7 / / [id number] Description:Attune Tibial ba se fixed bearing size 7 cemented [id number] - [id number] Implanted:Qty: 1 on 05/04/2014 by Morris Alanis MD at [facility] Right: Knee DEPUY 08/06/2018 8 / / [id number] Description:Attune patella m edialized dome [id number] - [id number] Implanted:Qty: 1 on 05/04/2014 by Morris Alanis MD at [facility] Right: Knee DEPUY 06/06/2023 1504-01-27 7 / / [id number] Description:Attune femoral p osterior stabilized Procedures Procedure Name Priority Date/Time Associated Diagnosis Comments ECHO TTE COMPLETE WO CONTRAST Routine 07/16/2024 8:29 AM CDT Epigastric pain ANTI HCV Routine 05/10/2020 10:29 AM [facility] Encounter for HCV screening test for high risk patient LIPID PANEL W REFLEX MEASURED LDL Routine 05/10/2020 10:29 AM [facility] HTN (hypertension) Well adult exam OCCULT BLOOD [...] BSA: 2.16 m Weight: 103.00 kg Tech: [facility] Referring MD: HARRIET PARKINSON Site: [facility] Reading Location: Mobile-OP [...] . This study was interpreted by an [facility] accredited facility. CC: [facility] (med [facility]) [facility]. Final Procedure Note Manuel Back MD - 07/16/2024 ECHOCARDIOGRAM MOISES LUNA : 1960 63 years Study Date: 07/16/2024 8:05:51 AM Gender: M BP: 167/94 mmHg Height: 173.00 cm BSA: 2.16 m Weight: 103.00 kg Tech: [facility] Referring MD: HARRIET PARKINSON Site: [facility] Reading Location: Mobile-OP [...] interpreted by an [facility] accredited facility. CC: [facility] (med records) [facility]. Final Harriet Parkinson NAVIGATING OFFICER ECHO ORD F inal Result * (ABNORMAL) LIPID PANEL W REFLEX MEASURED LDL (05/10/2020 10:29 AM [facility]) CHOLESTEROL,TOTAL 258(H) 100 - 199 mg/dL 05/10/2020 11:13 AM [facility] TRIGLYCERIDES 200(H) <150 mg/dL 05/10/2020 11:13 AM [facility] HDL CHOLESTEROL 47 >40 mg/dL 11:13 AM [facility] NON-HDL CHOLESTEROL 211(H) <145 mg/dl 05/10/2020 11:13 AM [facility] CHOL/HDL RATIO 5.49(H) <4.50 05/10/2020 11:13 AM [facility] LDL CHOLESTEROL 171(H) <=130 mg/dL 05/10/2020 11:13 AM [facility] PROVIDER ORDERED STATUS RANDOM 05/10/2020 11:13 AM [facility] Blood BLOOD SPECIMEN / Unknown Venipuncture / Unknown 05/10/2020 10:29 AM [facility] 05/10/2020 10:32 AM [facility] [employer] Jeb Marquis MD CHEMISTRY Final R esult Performing Organization Address City/[facility]/ZIP Co de Phone Number [facility] [address] [place] [address] * ANTI HCV (05/10/2020 10:29 AM [facility]) HEPATITIS C ANTIBODY Non-React jhony Non-React jhony 05/10/2020 6:10 PM [facility] Comment:Antibodies to HCV no t detected; does not exclude the possibility of exposure to HCV. Blood BLOOD SPECIMEN / Unknown Venipuncture / Unknown 05/10/2020 10:29 AM [facility] 05/10/2020 10:32 AM [facility] Jeb Marquis MD SEND OUTS Final R esult Performing Organization Address City/[facility]/ZIP Co de Phone Number [facility] [address] [place] [address], [place] * OCCULT BLOOD IFOBT STOOL (01/02/2017 1:00 PM CDT) STOOL BLOOD ,IFOBT Negative Negative 01/02/2017 4:29 PM CDT [facility] Stool STOOL SPECIMEN / Unknown Non-Blood / Unknown 01/02/2017 1:00 PM CDT 01/02/2017 4:00 PM CDT us Fabien Gamez MD LABORATORY Final Result Performing Organization Address [facility]/ZIP Co de Phone Number [facility] [address] [place] [address] from Last 3 Months or Most Recently Relevant to Health Maintenance Insurance [place] [address] * Guarantor: [employer] Account Type Relation to Patient Date of Phone Billing Address [facility] [employer] [address] [place] [address] Advance Directives * Full Code (Latest Code Status on File) Date Activated Date Inactivated Comments 05/04/2014 12:30 PM 05/07/2014 4:53 PM * Full Code Date Activated Date Inactivated Comments 05/04/2014 7:25 AM 05/04/2014 12:30 PM Care Teams Branch Lead Relationship Specialty Start Date End Date Pcp, No . PCP - General 07/04/23
[2024-07-16 20:07] LABS: INR 0.93 (0.91-1.10); Partial Thromboplastin Time* 30 Seconds (23-33); Prothrombin Time 13.2 Seconds
[2024-07-16 21:33] LABS: Troponin I* 2.63 ng/mL (0.01-0.04)
[2024-07-16 23:25] LABS: Partial Thromboplastin Time* 36 Seconds (23-33)
[2024-07-16] MEDS: HEPARIN 5,000 UNIT/0.5 ML INJ 5000 UNIT IVP (23:39)
== END 2024-07-16 23:49 | disposition short-term general hospital (02) ==
LOC: ED 16:57
PROVIDERS: Emergency Provider Student in an Organized Health Care Education/Training Program; PCP Registered Nurse
DX: I24.9 Acute ischemic heart disease, unspecified (principal); I16.1 Hypertensive emergency
CPT/HCPCS: 36415; 80048; 84484; 85025; 85027; 85610; 85730; 93005; 99285; 99291; J1644

== ENCOUNTER 2024-07-16 23:39 | Outpatient (CLI) | payer OTHER, SELFPAY | END 2024-07-16 23:40 | disposition home or self-care (01) | LOC: AMB 07-21 08:10 | PROVIDERS: PCP Registered Nurse; Visit Provider Family Medicine | DX: I24.9 Acute ischemic heart disease, unspecified (principal); I16.1 Hypertensive emergency | CPT/HCPCS: A0425; A0434 ==

== ENCOUNTER 2024-08-01 15:34 | Outpatient (CLI) | payer OTHER, SELFPAY | END 2024-08-01 15:35 | disposition home or self-care (01) | LOC: NFLDREF 15:39 | PROVIDERS: PCP Registered Nurse; Visit Provider Registered Nurse | DX: R42 Dizziness and giddiness (principal); Z98.890 Other specified postprocedural states | CPT/HCPCS: 80048 ==

== ENCOUNTER 2024-08-04 11:10 | Outpatient (CLI) | payer OTHER, SELFPAY | END 2024-08-04 11:11 | disposition home or self-care (01) | LOC: NFLDREF 08-05 23:33 | PROVIDERS: PCP Registered Nurse; Referring Provider Registered Nurse; Visit Provider Registered Nurse | DX: I10 Essential (primary) hypertension (principal); E87.5 Hyperkalemia | CPT/HCPCS: 80048 ==